=== PATIENT | female | born 1970 | race Caucasian/White ===

== ENCOUNTER 2019-01-20 09:22 | Emergency (ER) | payer SELFPAY ==
[2019-01-20] MEDS ORDERED: CYCLOBENZAPRINE HCL 10 MG TAB PO ONE (09:49)
[2019-01-20] MEDS ORDERED: KETOROLAC TROMETHAMINE INJ 30 MG/ML VIAL IM ONE (09:49)
[2019-01-20] MEDS ORDERED: predniSONE 20 MG TAB PO ONE (09:49)
--- NOTE | 2019-01-20 10:18 | ED.PDOC ---
History of Present Illness - General Chief Complaint: Neck Injury/Pain Time Seen by Provider: 01/20/19 09:29 Source: patient Exam Limitations: no limitations - History of Present Illness Initial Comments: the patient is a 48-year-old female presenting to the emergency room secondary to left-sided neck pain extending down to the left shoulder that started approximately 7-10 days ago. No history of any trauma. Pain seems to be at worst and originating at the left atlantooccipital junction area. She does have obvious muscle spasm and it is difficult to pinpoint the source of pain at this time due to propagation of the muscle spasms over the past week. No definite palpable bony abnormality. No skin changes. Passive range of motion of the left shoulder does not cause pain however active range of motion does cause pain extending up towards her neck. This has given her tension headaches. No syncope. No neurological changes otherwise. No chest pain. No fevers.physically she is most comfortable with her head and neck turned and tilted towards the left. I do not feel definite spasm of the sternocleidomastoid muscle at its distal belly however the proximal muscle is a little tender to palpation. She definitely has tenderness over the upper trapezius muscle on the left extending over the area and possibly as well over the supraspinatus muscle on the left. Timing/Duration: 1 week, constant, getting worse Severity: severe Improving Factors: immobilization Worsening Factors: movement Associated Symptoms: headaches Allergies/Adverse Reactions: Allergies Aspirin Allergy (Mild, Verified 01/11/15 12:51) Home Medications: Ambulatory Orders Albuterol Inhaler [Proventil Hfa Inhaler] 2 puff INH Q4H #1 inh 01/11/15 Cyclobenzaprine HCl [Flexeril] 10 mg PO TID PRN #20 tab 01/20/19 predniSONE [Prednisone] 20 mg PO DAILY #7 tab 01/20/19 Review of Systems - Review of Systems Constitutional: States: no symptoms reported EENTM: States: no symptoms reported Respiratory: States: no symptoms reported Cardiology: States: no symptoms reported Gastrointestinal/Abdominal: States: no symptoms reported Genitourinary: States: no symptoms reported Musculoskeletal: States: see HPI Skin: States: no symptoms reported Neurological: States: headache Endocrine: States: no symptoms reported All other Systems: No Change from Baseline Past Medical History (General) - Patient Medical History Hx Asthma: Yes Hx Diabetes: No Surgical History: other - Social History Hx Tobacco Use: Yes Family Medical History - Family History Mother Family History: No Known Physical Exam - Physical Exam General Appearance: Alert, Other - the patient is obviously uncomfortable Eye Exam: bilateral normal Ears, Nose, Throat: hearing grossly normal, normal ENT inspection Neck: tender lateral, other - see history of present illness. Respiratory: no respiratory distress, no accessory muscle use Cardiovascular/Chest: normal peripheral pulses, regular rate, rhythm - regular rate, no edema Peripheral Pulses: radial,right: 2+, radial,left: 2+ Rectal Exam: deferred Back Exam: no CVA tenderness, no vertebral tenderness, other - tenderness adjacent to the spine starts at approximately C6 and extends upwards with obvious muscle spasm. No spinous process tenderness. 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 The exact point of the start of symptoms is difficult to tell due to propogation of symptoms over the past week. The patient is going to be placed on prednisone and Flexeril for the next week to help reduce inflammation and muscle spasm. She does need to try and do stre tching exercises. Topical heat in the form of a heating pad, icy hot or Biofreeze may help. In a few days, if the neck is loosening up, then a visit to the chiropractor may prove beneficial. Cervical spine x-ray was reassuring. She needs to keep herself well hydrated. Uahl-syq-fekzsku Aleve can be taken twice a day with food. I would also recommend that she take pehe-wey-xhvvllk generic Pepcid or Nexium for the next couple of weeks while she is taking these other medications to reduce stomach irritation. ER warnings were given for any acute worsening. Keep routine follow-up with primary care doctor otherwise. elba valencia [id number] - Results/Orders Results/Orders: cervical spine x-ray shows no acute pathology other than what is seen due to muscle spasm. She does have some chronic changes. No obvious new instability. Departure - Departure Clinical Impression: Acute cervical myofascial strain Qualifiers: Encounter type: initial encounter Qualified Code(s): S16.1XXA - Strain of muscle, fascia and tendon at neck level, initial encounter Disposition: Discharge to Home or Self Care Condition: Fair Departure Forms: ED Discharge - Pt. Copy, Patient Portal Self Enrollment Instructions: DI for Cervical Muscle Strain, DI for Neck Sprain, DI for Neck Pain Diet: regular diet Activity: increase activity as tolerated Prescriptions: Cyclobenzaprine HCl [Flexeril] 10 mg PO TID PRN #20 tab PRN Reason: Muscle Spasms predniSONE [Prednisone] 20 mg PO DAILY #7 tab Home Medications: Ambulatory Orders Albuterol Inhaler [Proventil Hfa Inhaler] 2 puff INH Q4H #1 inh 01/11/15 Cyclobenzaprine HCl [Flexeril] 10 mg PO TID PRN #20 tab 01/20/19 predniSONE [Prednisone] 20 mg PO DAILY #7 tab 01/20/19 Additional Instructions: the patient is a 48-year-old female presenting to emergency room secondary to what appears to be left-sided posterior neck muscle spasms most likely related to myofascial strain. The exact point of the start of symptoms is difficult to tell due to propogation of symptoms over the past week. The patient is going to be placed on prednisone and Flexeril for the next week to help reduce inflammation and muscle spasm. She does need to try and do stretch ing exercises. Topical heat in the form of a heating pad, icy hot or Biofreeze may help. In a few days, if the neck is loosening up, then a visit to the chiropractor may prove beneficial. Cervical spine x-ray was reassuring. She needs to keep herself well hydrated. Ftdc-yvx-kwqdypd Aleve can be taken twice a day with food. I would also recommend that she take fnhf-hoo-icttfmo generic Pepcid or Nexium for the next couple of weeks while she is taking these other medications to reduce stomach irritation. ER warnings were given for any acute worsening. Keep routine follow-up with primary care doctor otherwise.
--- NOTE | 2019-01-20 10:32 | RAD ---
EXAM DESCRIPTION: Cervical Spine, 2-3 Views CLINICAL HISTORY: 48 years Female, upper neck to left shoulder pain 1 week COMPARISON: 08/16/2006 TECHNIQUE: 3 views of the cervical spine. IMPRESSION: Intact on the odontoid on open-mouth view normal anatomic alignment of the lateral masses C1 through C7 vertebrae are visualized. No acute displaced fracture or compression deformity. Straightening of the cervical spine which may be contributed by patient positioning or muscle spasm. Unchanged trace anterolisthesis of C3 relative to C4 which may be secondary to facet hypertrophy. Subtle dextro curvature at C3-C4 but may be positional. No lateral translation. Mild uncovertebral spurring. Disc space heights maintained. No prevertebral soft tissue thickening. Visualized lungs unremarkable. Electronically signed by: Emiliano Andrade MD 01/20/2019 10:30 AM CDT
[2019-01-20 11:32] VITALS: O2SAT 98
[2019-01-20 11:33] VITALS: BP 135/86; TEMP 97.3
== END 2019-01-20 11:00 | disposition home or self-care (01) ==
LOC: ER 09:22
DX: S16.1XXA Strain of muscle, fascia and tendon at neck level, initial encounter (principal); R51 Headache; J45.909 Unspecified asthma, uncomplicated; Z87.891 Personal history of nicotine dependence; Z79.899 Other long term (current) drug therapy; Z88.6 Allergy status to analgesic agent; X58.XXXA Exposure to other specified factors, initial encounter; Y92.9 Unspecified place or not applicable
CPT/HCPCS: 72040; J1885; J7512

== ENCOUNTER 2019-04-26 11:53 | Emergency (ER) | payer OTHER ==
[2019-04-26] MEDS ORDERED: SODIUM CHLORIDE 0.9% (FLUSH) 10 ML SYG IV PRN (12:05)
[2019-04-26] MEDS ORDERED: SODIUM CHLORIDE 0.9% 1000ML 1,000 ML IVS ONE (12:07)
[2019-04-26] MEDS ORDERED: KETOROLAC TROMETHAMINE INJ 30 MG/ML VIAL IV ONE (12:07)
[2019-04-26] MEDS ORDERED: diphenhydrAMINE HCL 50 MG/ML VIAL IV ONE (12:08)
[2019-04-26] MEDS ORDERED: METOCLOPRAMIDE HCL INJ 10 MG/2 ML VIAL IV ONE (12:08)
--- NOTE | 2019-04-26 12:24 | ED.PDOC ---
History of Present Illness - General Chief Complaint: General Stated Complaint: Weak, nauseated and achy Time Seen by Provider: 04/26/19 11:56 Source: patient - History of Present Illness Initial Comments: 48-year-old female presents to the emergency department complaining of generalized weakness with diffuse myalgias, nausea and cough onset 3 days ago. She reports that she has had multiple contacts recently that have been sick with the flu. She reports intermittent episodes of vomiting but the last was 2 days ago. She denies any abdominal pain or fever/chills. She denies any dysuria or hematuria. Symptoms are currently moderate in severity and nothing she has done seems to make them significantly better or worse. Allergies/Adverse Reactions: Allergies Aspirin Adverse Reaction (Mild, Verified 04/26/19 12:31) Other Causes dizziness and a feeling like she will "pass out" Home Medications: Ambulatory Orders Naproxen [Naproxen EC] 500 mg PO Q12H PRN #20 tab 04/26/19 Ondansetron HCl [Zofran] 4 mg PO Q8H PRN #10 tab 04/26/19 Review of Systems - Review of Systems Constitutional: States: malaise, weakness. Denies: chills, fever EENTM: States: nose congestion. Denies: throat pain Respiratory: States: cough. Denies: short of breath Cardiology: Denies: chest pain, palpitations Gastrointestinal/Abdominal: States: nausea, vomiting. Denies: abdominal pain, diarrhea Genitourinary: Denies: dysuria, hematuria Musculoskeletal: States: joint pain, muscle pain Skin: Denies: lesions, rash Neurological: States: headache. Denies: numbness, paresthesia Past Medical History (General) - Patient Medical History Hx Asthma: Yes Hx Diabetes: No - Social History Hx Tobacco Use: Yes Family Medical History - Family History Mother Family History: No Known Physical Exam - Physical Exam General Appearance: Alert, No apparent distress, Well Developed, Well Nourished Eye Exam: bilateral normal Ears, Nose, Throat: normal ENT inspection, normal pharynx Neck: full range of motion, normal inspection Respiratory: lungs clear, normal breath sounds, no respiratory distress, no accessory muscle use Cardiovascular/Chest: regular rate, rhythm, no edema Gastrointestinal/Abdominal: normal bowel sounds, non tender, soft Back Exam: normal inspection Extremity: normal range of motion, normal inspection, no pedal edema Neurologic: no motor/sensory deficits, alert, normal mood/affect, oriented x 3, other - Normal gait Skin Exam: normal color, warm/dry Comments: Vital Signs - 24 hr 04/26/19 11:56 Temperature 98.9 F Pulse Rate [ 90 Left Radial] Respiratory 18 Rate Blood Pressure 111/90 [Left Arm] O2 Sat by Pulse 95 Oximetry Progress - Progress Progress: 04/26/19 13:28 Patient recheck: All lab and imaging results so far were discussed. The patient is resting comfortably. At this time urine results are still pending and the patient thinks that she will be able to give us a sample now. 04/26/19 13:59 All lab and imaging results discussed with the patient along with plan for discharge. She'll be given Zofran and naproxen for symptomatic therapy of her nausea and body aches. She is encouraged to increase oral fluid intake. She was encouraged to follow up with her primary care physician or the [facility] as soon as possible. She is also encouraged to return to the emergency department for any significant worsening of symptoms or other concerns. The patient and significant other at the bedside who voiced understanding and agrees to treatment plan. - Results/Orders Results/Orders: 04/26/19 12:05 IV Care:Saline Lock per Protoc QSHIFT Sodium Chloride 0.9% (Flush) [Saline Flush Syringe] 10 ml IV PRN PRN 04/26/19 12:07 UA [URINALYSIS] Stat 04/26/19 12:15 EKG STAT Laboratory Results - last 24 hr 04/26/19 04/26/19 04/26/19 12:07 12:16 12:16 WBC 8.5 RBC 4.86 Hgb 15.5 Hct 45.3 MCV 93.2 MCH 31.9 H MCHC 34.3 RDW 13.0 Plt Count 299 MPV 8.7 Absolute Neuts (auto) 4.80 Absolute Lymphs (auto) 3.00 Absolute Monos (auto) 0.50 Absolute Eos (auto) 0.10 Absolute Basos (auto) 0.10 Neutrophils % 56.4 Lymphocytes % 35.4 Monocytes % 6.2 Eosinophils % 1.1 Basophils % 0.9 Sodium Potassium Chloride Carbon Dioxide Anion Gap BUN Creatinine BUN/Creatinine Ratio Random Glucose Serum Osmolality Calcium Total Bilirubin AST ALT Alkaline Phosphatase Serum Total Protein Albumin Globulin Albumin/Globulin Ratio Lipase 49 Urine Color Urine Appearance Urine pH Ur Specific [place] Urine Protein Urine Glucose (UA) Urine Ketones Urine Blood Urine Nitrite Urine Bilirubin Urine Urobilinogen Ur Leukocyte Esterase Urine RBC Urine WBC Ur Epithelial Cells Urine Bacteria Urine HCG, Qual Negative 04/26/19 04/26/19 12:16 13:38 WBC RBC Hgb Hct MCV MCH MCHC RDW Plt Count MPV Absolute Neuts (auto) Absolute Lymphs (auto) Absolute Monos (auto) Absolute Eos (auto) Absolute Basos (auto) Neutrophils % Lymphocytes % Monocytes % Eosinophils % Basophils % Sodium 136 Potassium 3.7 Chloride 99 L Carbon Dioxide 26 Anion Gap 14.7 BUN 14 Creatinine 0.77 BUN/Creatinine Ratio 18.2 Random Glucose 89 Serum Osmolality 271.9 L Calcium 9.8 Total Bilirubin 0.6 AST 24 ALT 19 Alkaline Phosphatase 76 Serum Total Protein 7.9 Albumin 4.3 Globulin 3.6 H Albumin/Globulin Ratio 1.2 Lipase Urine Color Yellow Urine Appearance Clear Urine pH 7.5 Ur Specific [place] 1.015 Urine Protein Negative Urine Glucose (UA) Negative Urine Ketones Negative Urine Blood Negative Urine Nitrite Negative Urine Bilirubin Negative Urine Urobilinogen 0.2 Ur Leukocyte Esterase Negative Urine RBC 0-1 Urine WBC 0-1 Ur Epithelial Cells 0 Urine Bacteria 0 Urine HCG, Qual EKG interpreted by myself at 12:18 PM. Normal sinus rhythm rate 77. Normal axis. Normal intervals. No ST elevation and nonspecific ST-T changes. CXR: Impression: 1. No acute abnormality in the chest. Electronically signed by: James Wynn MD 04/26/2019 12:41 PM EMBEDDED SOFTWARE DESIGN ENGINEER Departure - Departure Clinical Impression: Influenza-like illness, Malaise Time of Disposition: 13:56 Disposition: Discharge to Home or Self Care Departure Forms: ED Discharge - Pt. Copy, Patient Portal Self Enrollment Instructions: Flu Referrals: [facility] [Provider Group] - 1-2 Weeks Prescriptions: Naproxen [Naproxen EC] 500 mg PO Q12H PRN #20 tab PRN Reason: Pain Ondansetron HCl [Zofran] 4 mg PO Q8H PRN #10 tab PRN Reason: Nausea Home Medications: Ambulatory Orders Naproxen [Naproxen EC] 500 mg PO Q12H PRN #20 tab 04/26/19 Ondansetron HCl [Zofran] 4 mg PO Q8H PRN #10 tab 04/26/19 Additional Instructions: Take medications as directed. Increase oral fluid intake. Follow-up with your primary care physician or the [facility]. Return to the emergency department for any worsening symptoms or other concerns.
--- NOTE | 2019-04-26 12:42 | RAD ---
Procedure: XR CHEST 2 VIEWS Exam Date: 04/26/2019 Ordering Provider: Aleisha Ignacio Clinical Indication: cough Comparison: 01/11/2015 Findings: Cardiomediastinal silhouette is within normal limits. No focal lung consolidation. No pleural effusion. No pneumothorax. No acute osseous abnormality. Remote left-sided rib fractures. Impression: 1. No acute abnormality in the chest. Electronically signed by: James Wynn MD 04/26/2019 12:41 PM MARBLEIZER
[2019-04-26 14:18] VITALS: BP 111/75; TEMP 97; O2SAT 97
== END 2019-04-26 14:14 | disposition home or self-care (01) ==
LOC: ER 11:53
DX: J11.1 Influenza due to unidentified influenza virus with other respiratory manifestations (principal); R53.81 Other malaise; J45.909 Unspecified asthma, uncomplicated; Z87.891 Personal history of nicotine dependence; Z88.6 Allergy status to analgesic agent
CPT/HCPCS: 36415; 71046; 80053; 81001; 81025; 83690; 85025; 87502; 93005; J1200; J1885; J2765; J7030

== ENCOUNTER 2020-02-18 14:05 | Emergency (ER) | payer OTHER ==
--- NOTE | 2020-02-18 15:14 | ED.PDOC ---
History of Present Illness - General Time Seen by Provider: 02/18/20 15:10 Source: patient Exam Limitations: no limitations - History of Present Illness Initial Comments: Patient is a 49-year-old female presented emergency room secondary to a lesion that has developed at the base of the hairline to the left posterior scalp. It has been present for 3 to 4 days. It does cause some mild referred pain. There is erythema and questionable vesicles or pustules. There is no abscess formation. She has had some trapezius irritation referred is from that. No fever. No history of any shingles. No other significant symptoms. Timing/Duration: other Severity: moderate Improving Factors: nothing Worsening Factors: nothing Associated Symptoms: denies symptoms Allergies/Adverse Reactions: Allergies Aspirin Adverse Reaction (Mild, Verified 04/26/19 12:31) Other Causes dizziness and a feeling like she will "pass out" Home Medications: Ambulatory Orders Naproxen [Naproxen EC] 500 mg PO Q12H PRN #20 tab 04/26/19 Ondansetron HCl [Zofran] 4 mg PO Q8H PRN #10 tab 04/26/19 Sulfa/Trimeth 800/160 (Ds) Tab [Bactrim DS Tab] 1 ea PO BID #14 tab 02/18/20 Review of Systems - Review of Systems Constitutional: States: no symptoms reported EENTM: States: no symptoms reported Respiratory: States: no symptoms reported Cardiology: States: no symptoms reported Gastrointestinal/Abdominal: States: no symptoms reported Genitourinary: States: no symptoms reported Musculoskeletal: States: no symptoms reported Skin: States: see HPI Neurological: States: headache - Mild Endocrine: States: no symptoms reported All other Systems: No Change from Baseline Past Medical History (General) - Patient Medical History Hx Stroke: No Hx Asthma: Yes Hx Congestive Heart Failure: No Hx Diabetes: No Hx MRSA: No - Vaccination History Hx Influenza Vaccination: No Hx Pneumococcal Vaccination: No - Social History Hx Tobacco Use: Yes Hx Alcohol Use: No Hx Substance Use: Yes - Marijuana use occasionally Family Medical History - Family History Mother Family History: No Known Physical Exam - Physical Exam General Appearance: Alert, Comfortable, No apparent distress Eye Exam: bilateral normal Ears, Nose, Throat: hearing grossly normal Neck: other - See history of present illness. Full range of motion. No abscess formation. 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 This is most likely folliculitis. The patient will be placed on Bactrim twice daily for the next week for this. She can wash it twice daily with antibacterial soap and water. She can use Motrin additionally for any discomfort. There is the slight possibility that this can be very first onset of shingles. If the lesion is worsening or is developing in a linear pattern then a repeat evaluation and treatment for shingles may be warranted. She does need to take medicines with food to prevent any stomach upset. ER warnings were given. elba valencia [phone] Departure - Departure Clinical Impression: Folliculitis Disposition: Discharge to Home or Self Care Condition: Fair Instructions: Bacterial Folliculitis Diet: regular diet Activity: increase activity as tolerated Prescriptions: Sulfa/Trimeth 800/160 (Ds) Tab [Bactrim DS Tab] 1 ea PO BID #14 tab Home Medications: Ambulatory Orders Naproxen [Naproxen EC] 500 mg PO Q12H PRN #20 tab 04/26/19 Ondansetron HCl [Zofran] 4 mg PO Q8H PRN #10 tab 04/26/19 Sulfa/Trimeth 800/160 (Ds) Tab [Bactrim DS Tab] 1 ea PO BID #14 tab 02/18/20 Additional Instructions: The patient is a 49-year-old female presenting to the emergency room secondary to a area of erythema to the posterior left scalp. This is most likely folliculitis. The patient will be placed on Bactrim twice daily for the next week for this. She can wash it twice daily with antibacterial soap and water. She can use Motrin additionally for any discomfort. There is the slight possibility that this can be very first onset of shingles. If the lesion is worsening or is developing in a linear pattern then a repeat evaluation and t reatment for shingles may be warranted. She does need to take medicines with food to prevent any stomach upset. ER warnings were given.
[2020-02-18 15:24] VITALS: TEMP 97.1; O2SAT 95
[2020-02-18 15:29] VITALS: BP 137/95
== END 2020-02-18 15:29 | disposition home or self-care (01) ==
LOC: ER 14:05
DX: L73.9 Follicular disorder, unspecified (principal); J45.909 Unspecified asthma, uncomplicated; Z87.891 Personal history of nicotine dependence; Z88.6 Allergy status to analgesic agent